=== PATIENT | male | born 1945 | race Caucasian/White ===

== ENCOUNTER 2022-12-04 07:59 | Emergency (ER) | payer MEDICARE, OTHER, BC, SELFPAY ==
[2022-12-04] VITALS (53 sets, daily range): BP systolic 109–210; BP diastolic 42–192; PULSE 43–90; RESP 7–53; TEMP 36.6; O2SAT 85–98
--- NOTE | 2022-12-04 08:00 | RT.EKG_ITS ---
APPROVED REPORT Exam: Resting ECG Reason for Exam: sob Patient Location: E HR:82 bpm ECG Measurements Heart Rate 82 AXIS NJ 256 P 58 QRSd 166 QRS -53 QT 455 T 94 QTc 530 Conclusion Sinus rhythm...normal P axis, V-rate 60- 99 Prolonged NJ interval...NJ >220, V-rate 50- 90 RBBB and LAFB...QRSd >120mS, axis(-40,240) LVH with secondary repolarization abnormality...multi-LVH criteria, abnrm ST-T Normal sinus rhythm at a rate of 82 with first-degree AV block and a NJ interval of 256 ms. Right bu ndle branch block with left axis deviation?bifascicular block. LVH based on voltage criteria in aVL. No acute ST segment abnormalities. No prior for comparison.
--- NOTE | 2022-12-04 08:32 | ED.GENADUL_ITS ---
Discharge Plan Disposition Patient Disposition: Home Condition: Improving Discharge Details Clinical Impression: Bilateral lower extremity edema, Drug-induced long QT syndrome, Pulmonary edema, Anemia Primary Care Provider: Catherine,Local ED Provider: Terri Rodríguez Home Meds and New Rx's Prescriptions: Continued latanoprost 0.005 % Drops 1 drp ophthalmic (eye) QHS levothyroxine 175 mcg tablet 175 mcg PO DAILY potassium chloride 10 mEq Capsule, Extended Release 20 meq PO DAILY lisinopril 20 mg Tablet 20 mg PO BID glipizide 10 mg Tablet 10 mg PO BID allopurinol 100 mg Tablet 100 mg PO DAILY aspirin 81 mg Tablet,Delayed Release (Dr/Ec) 81 mg PO DAILY isosorbide mononitrate 60 mg tablet extended release 24 hr 60 mg PO DAILY Patient Comments: TAKE 1 TABLET BY MOUTH EVERY DAY amlodipine 10 mg Tablet 10 mg PO DAILY metformin 1,000 mg Tablet 1,000 mg PO BID hydralazine 50 mg Tablet 50 mg PO TID metoprolol succinate 25 mg tablet extended release 24 hr 25 mg PO DAILY Patient Comments: TAKE 1 TABLET BY MOUTH EVERY DAY multivitamin,[id number]-[id number]-FA-min Tablet 1 tab PO DAILY cholecalciferol (vitamin D3) 25 mcg (1,000 unit) Tablet 25 mcg PO DAILY alogliptin 25 mg Tablet 25 mg PO DAILY atorvastatin 40 mg Tablet 40 mg PO QHS Changed furosemide 40 mg tablet 80 mg PO DAILY Qty: 0 0RF Patient Comments: TAKE 1 TABLET BY MOUTH EVERY DAY ranolazine 1,000 mg tablet extended release 12 hr 500 mg PO BID Qty: 0 0RF Patient Comments: TAKE 1 TABLET BY MOUTH EVERY 12 HOURS Discharge Instructions Instructions: Heart Failure (ED), Low-Sodium Diet (ED) Additional Instructions: Your shortness of breath is associated with fluid overload. Please try to pay close attention to how much sodium you are getting in your diet. I have attached a informational sheet regarding a low-sodium diet. This particularly found in processed foods. To help with your self of this extra fluid, please increase your Lasix from 40 mg to 80 mg for the next 2 days. You did get an IV dose today so do not need any further today. Reviewed medication changes, I would like for you to change your Lasix as above and cut back on your granola zine as this is causing you to have some EKG changes. I would like for you to cut this back to 500 mg twice a day as was your previous dosing. With these medication changes, you will need to have your labs checked this week, please call your cardiology team for primary care to discuss these needs. Please continue to elevate your legs and apply compressive if you develop chest pain, increase shortness of breath, fever/chills or other new/worsening symptom please seek care urgently once again. Otherwise, please follow-up with your cardiology team or primary care by the end of the week.Dressings to your lower extremities. Discharge Data Discharge Date/Time-TO BE ENTERED AT DEPARTURE: 12/04/22 13:58 Medical Decision Making Patient is a pleasant 77-year-old male, accompanied by [id number], with chief complaint of shortness of breath. Past medical history pertinent for reported diastolic dysfunction, recent MALGORZATA, bilateral lower extremity lymphedema, oxygen dependent, ACS with stent placement, LORA. He reports that he began short of breath yesterday but states that this is only with exertion. He denies any chest pain. No pain with respirations or lower abdominal pain. States that he does have chronic lower extremity swelling and this has increased recently. He is chronically on 40 mg of p.o. Lasix and states that he has had 3 short bursts of this being increased to 80 mg daily over the past month. Patient was also recently discharged from hospital in [place] where he was being treated for reported diastolic dysfunction, fluid overload, pulmonary edema, GI bleed. Patient was chronically on Plavix associated with previous stent placement but this is since been stopped due to his GI bleed. As reported by patient and family that no direct source of bleeding was found although I do believe that it was in the small bowel. They report that he received 4 units of PRBCs as well as iron transfusions and was discharged home with a hemoglobin over 8 and that it had remained there at his postdischarge appointment. He has not noted any change in his bowel habits recently. Reports he has been having 1 bowel movement per day and is chronically on MiraLAX. No known respiratory issues aside from recent pulmonary edema. Remote history of smoking. [id number]-[id number] concerned for reduced capacity due to obesity but has not been formally diagnosed and I am aware of. Patient chronically has a sleeping upright position but this is not changed recently. Patient old here from [place] 2 days ago. Has not been using his CPAP since as his travel and is not able to except that his oxygen demand. On exam, patient appears chronically ill. While he denies being short of breath at the moment, he is noted to take frequent short breaths which may be associated with his position and body habitus. He does have crackles heard bilaterally as well as significant lower extremity edema for which she has compression hose on. He has no posterior calf tenderness with palpation. His abdomen is nontender. Normal cardiac exam. He does not appear frankly anemic at this time with pink conjunctiva and mucous membranes. His exam is more consistent with a heart failure exacerbation. However, given his recent history of anemia, unknown source of GI bleed and other comorbidities I do feel that prior to treating this, we will begin with diagnostics. He does report mild dry cough but he has not had any other upper respiratory symptoms or fever/chills to suggest pneumonia. He also reports that when he went in for his anemia to the emergency department initially, he was having some shortness of breath similar to this so certainly on the differential. Also considered potential ACS given past medical history. Also considered potential PE given him stopping his Plavix recently, travel and hospitalization. ECG was obtained and reviewed by Dr. Diallo. 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 No ST elevation. HEART: Enlarged.? Aorta: Not dilated.? Calcification. PULMONARY VASCULATURE: Mildly prominent.? LUNGS: Increased interstitial markings lower lobes. ? PLEURAL SPACE: Small bilateral pleural effusions.? No pneumothorax.? BONE:Unremarkable for age.? IMPRESSION: Findings consistent with cardiomegaly and mild CHF VBG reviewed. pH is normal but the bicarb is elevated. This may be associated with his not using his CPAP recently. His CBC was reviewed. While he still remains anemic, his hemoglobin is uptrending compared to recent reports hemoglobin of 9.2, up from the 8.4. I reviewed the chest x-ray myself. Exam and x-ray support fluid overload and we will give IV Lasix. The patient reports that he is feeling improved after the IV Lasix. Will road test the patient. Repeat troponin remains within normal limits. D-dimer is within age-adjusted normal. No significant electrolyte abnormalities. Will obtain a repeat ECG concerning for prior mention abnormalities plus a prolonged QTc C. It was initially 530 and is now up to 578. On his medication list, I see when the Lizanne is a QT prolonging agent. This is not recently been changed for the patient. We will consult with cardiology regarding this change. Patient also has a few droplets noted increase in the concern. He denies any chest pain, Cardiology at advised that a range of QT 30-50ms is expected. Advised to hold on the ranolazine. Does not necessarily need to be admitted. Advised to get old ECG for comparison. We had called his previous hospital at the time of arrival to request this but have not yet received. Will attempt to reach cardiology directly, Dr. Harris, [facility]. Dr. Harris is not in but will speak with his nursing team and have them fax over previous ECG. QTC was just under 500 on that previous ECG. johan BBB was present on previous. They are able to see him in f/u. they also advise that patient had doubled the ranolazine, we discussed that he has been advised to go back to prior dosing of 500mg BID. Patient contineus to feel improved and is requesting d/c to home. We also disc ussed dietary triggers for his HF as his recent travel not only lead him to not use his CPAP, but also have increased sodium intake. We discussed where this is most commonly found. Encouraged elevation of LE, encouraged that he continue with his compression hose. Encouraged mobilization. Advised that he continue with the increased Lasix for the next 3 days. Advised he will need repeat labs later this week. He will call PCP as he is going back to [facility] or tomorrow. Strict return precautions given. All of his quesitons and concerns were addressed, they are in agreement with this plan. HPI General Date/Time Provider Initiated Documentation: 12/04/22 08:00 . Limitations to Documentation: no limitations . Information obtained by: patient, family (daughter in law) and RN notes reviewed . History of Present Illness 77 year old M presents to the emergency department with the chief complaint of SOB with exertion, described as moderate and similar to prior episodes, Quality is described as other (denies any pain), and is localized to the chest. Patient reports no radiation. Patient started experiencing this day(s) (1) and it has been intermittent and now resolved (wih rest). Immobilization improves symptom(s), Movement worsens symptoms . Patient notes cough and shortness of breath; denies chest pain, diaphoresis, fever/chills, loss of appetite, nausea/vomiting, rash and syncope. Patient did receive the following treatments prior to arrival, none (on home O2 chronically) Related Data Home Medications Medication Instructions Recorded Confirmed allopurinol 100 mg tablet 100 mg PO DAILY 12/04/22 12/04/22 alogliptin 25 mg tablet 25 mg PO DAILY 12/04/22 12/04/22 amlodipine 10 mg tablet 10 mg PO DAILY 12/04/22 12/04/22 aspirin 81 mg tablet,delayed 81 mg PO DAILY 12/04/22 12/04/22 release atorvastatin 40 mg tablet 40 mg PO QHS 12/04/22 12/04/22 cholecalciferol (vitamin D3) 25 25 mcg PO DAILY 12/04/22 12/04/22 mcg (1,000 unit) tablet furosemide 40 mg tablet 80 mg PO DAILY #0 tabs 12/04/22 12/04/22 glipizide 10 mg tablet 10 mg PO BID 12/04/22 12/04/22 hydralazine 50 mg tablet 50 mg PO TID 12/04/22 12/04/22 isosorbide mononitrate 60 mg 60 mg PO DAILY 12/04/22 12/04/22 tablet,extended release 24 hr latanoprost 0.005 % eye drops 1 drp ophthalmic (eye) QHS 12/04/22 12/04/22 levothyroxine 175 mcg tablet 175 mcg PO DAILY 12/04/22 12/04/22 lisinopril 20 mg tablet 20 mg PO BID 12/04/22 12/04/22 metformin 1,000 mg tablet 1,000 mg PO BID 12/04/22 12/04/22 metoprolol succinate 25 mg 25 mg PO DAILY 12/04/22 12/04/22 tablet,extended release 24 hr multivitamin,vy-xxbl-Ny-FA-min 1 tab PO DAILY 12/04/22 12/04/22 potassium chloride 10 mEq 20 meq PO DAILY 12/04/22 12/04/22 capsule,extended release ranolazine 1,000 mg 500 mg PO BID #0 tabs 12/04/22 12/04/22 tablet,extended release,12 hr Previous Rx's Medication Instructions Recorded furosemide 40 mg tablet 80 mg PO DAILY #0 tabs 12/04/22 ranolazine 1,000 mg 500 mg PO BID #0 tabs 12/04/22 tablet,extended release,12 hr Allergies Allergy/AdvReac Type Severity Reaction Status Date / Time iodine Allergy Severe Hives Unverified 12/04/22 08:10 General Stated Complaint: SOB RACHEL: 2 Review of Systems Constitutional Constitutional: Reports as per HPI, Denies chills and Denies fever(s) Cardiovascular Cardiovascular: Reports as per HPI Respiratory Respiratory: Reports as per HPI, Denies chest congestion, Denies pain on inspiration and Denies pain with cough Gastrointestinal Gastrointestinal: Reports as per HPI, Denies abdominal pain, Denies diarrhea and Denies nausea Musculoskeletal Musculoskeletal: Reports as per HPI and Denies back pain Integumentary/Breasts Skin/Breast: Reports as per HPI and Denies rash PFSH All Active Problems (Updated 12/04/22 @ 13:42 by CLAUDIA Arce) Bilateral lower extremity edema (Acute) Drug-induced long QT syndrome (Acute) Pulmonary edema (Acute) Anemia (Chronic) Social History Smoking/Tobacco Use Status: Former Tobacco Use Smoking risk assessment performed?: Yes Alcohol Intake: never Drug use: Never Substance use type: does not use Do you feel safe at home: Yes Do you feel safe in your relationship?: Yes Exam Const General: cooperative, comfortable, no acute distress, well developed and ill appearing chronically Nutritional Appearance: well nourished and obese Orientation: alert, awake and oriented x3 HENMT Head: normal to inspection Ears: hearing grossly normal bilaterally Mouth: moist mucous membranes Eyes General: appearance normal, both eyes and all related structures Chest Chest: normal inspection of the chest, normal palpation of entire chest wall and no crepitus Resp Effort & Inspection: able to speak in complete sentences, no respiratory distress and tachypneic Auscultation: crackles bilaterally at the base, no rales, no rhonchi and no wheezes Cardio Rate: regular rate Rhythm: regular rhythm Heart Sounds: S1 normal and S2 normal GI Inspection: normal to inspection and obesity Palpation: soft, no hepatosplenomegaly, not firm, no guarding, not rigid and nontender Skin General skin exam: no rashes or lesions noted Trauma: no lacerations or abrasions Neuro General: patient alert, patient awake and patient oriented x3 Cognition: normal cognition Speech: speech normal Gait: normal gait Extrem General: no calf tenderness, normal gait and edema (large amount of edema, no calf pain, bilateral compression hose in place) Course Vital Signs Vital signs: Vital Signs Temperature 36.6 C 12/04/22 08:01 Pulse 88 12/04/22 08:01 Respiratory Rate 20 12/04/22 08:01 Pulse Oximetry 90 L 12/04/22 08:01 Temperature 36.6 C 12/04/22 08:01 Temperature Source Oral 12/04/22 08:01 Pulse 88 12/04/22 08:01 Respiratory Rate 20 12/04/22 08:01 Blood Pressure Position Sitting 12/04/22 08:01 Pulse Oximetry 90 L 12/04/22 08:01 Oxygen Delivery Method Nasal Cannula 12/04/22 08:01 Oxygen Flow Rate 2 12/04/22 08:01
[2022-12-04 08:58] LABS: BE (Venous) 6 mmol/L (-2-3); HCO3 (Venous) 31 mmol/L (23-28); O2 Sat (Venous) 89 %; TCO2 (Venous) 29 mmol/L (24-29); pCO2 (Venous) 50 mmHg (41-51); pO2 (Venous) 56 mmHg
[2022-12-04 08:59] LABS: Abs Immature Grans 0.03 10^3/uL (0.0-0.06); Absolute Basophil Count 0.03 10^3/uL (0.0-0.2); Absolute Eosinophil Count 0.14 10^3/uL (0.0-0.7); Absolute Lymphocyte Count 0.44 10^3/uL (1.2-3.4); Absolute Monocyte Count 0.52 10^3/uL (0.1-0.8); Absolute Neutrophil Count 7.08 10^3/uL (1.2-6.7); Basophils % 0.4; Eosinophils % 1.7; HCT 29.6 % (40.0-50.0); HGB 9.2 g/dL (13.5-17.5); Immature Grans % 0.4; Lymphocytes % 5.3; MCHC 31.1 % (32.0-36.0); MCV 90 fL (80-95); MPV 9.5 fL (8.0-11.0); Monocytes % 6.3; Neutrophils % 85.9; Platelet Count 253 10^3/uL (130-400); RBC 3.28 10^6/uL (4.36-5.78); RDW 23.9 % (11.8-14.1); RDW-SD 78.5 fL; WBC 8.24 10^3/uL (4.4-10.8)
[2022-12-04 09:20] LABS: Anisocytosis 3+; Macrocytosis 1+; Microcytosis 2+; Poikilocytes 2+; Polychromasia Present
[2022-12-04 09:21] LABS: INR 1.1 (0.9-1.1); PTT Activated 27.5 sec (21.5-31.9); Prothrombin Time 10.7 sec (9.3-11.0)
--- NOTE | 2022-12-04 09:31 | DI.RAD_ITS ---
Exam(s) XR CHEST 2V PA LATERAL EXAM: XR CHEST 2V PA LATERAL CLINICAL HISTORY: SOB with exertion, recent admission for HF TECHNIQUE: 2D digital imaging was performed. COMPARISON: No exams were available for comparison FINDINGS: HEART: Enlarged. Aorta: Not dilated. Calcification. PULMONARY VASCULATURE: Mildly prominent. LUNGS: Increased interstitial markings lower lobes. PLEURAL SPACE: Small bilateral pleural effusions. No pneumothorax. BONE:Unremarkable for age. IMPRESSION: Findings consistent with cardiomegaly and mild CHF. DATA REPOSITORY: RADIATION DOSE DELIVERED:
[2022-12-04 09:41] LABS: ALT 23 U/L (16-63); AST 23 U/L (15-37); Albumin 3.6 g/dL (3.4-5.0); Alkaline Phosphatase 109 U/L (46-116); Anion Gap 9.1 mmol/L (3-11); BUN 19 mg/dL (7-18); Bilirubin, Total 0.5 mg/dL (0.2-1.0); CO2 29.9 mmol/L (21.0-32.0); CREATININE 1.1 mg/dL (0.70-1.30); Calcium 8.9 mg/dL (8.5-10.1); Chloride 102 mmol/L (98-107); Estimated GFR 69.14 (mL/min/1.73m2); Glucose 212 mg/dL (74-106); Magnesium 2.1 mg/dL (1.8-2.4); NT-proBNP 151 pg/mL (<300); Potassium 3.7 mmol/L (3.5-5.1); Sodium 141 mmol/L (136-145); Total Protein 7.5 g/dL (6.4-8.2); Troponin I < 50 ng/L (<or=60)
[2022-12-04] MEDS: Furosemide 40 MG/4 ML VIAL IVP (09:45)
[2022-12-04 10:21] LABS: D-Dimer 664 ng/mlFEU (<500)
--- NOTE | 2022-12-04 11:00 | RT.EKG_ITS ---
APPROVED REPORT Exam: Resting ECG Reason for Exam: ? rhythm change Patient Location: E HR:67 bpm ECG Measurements Heart Rate 67 AXIS NC 237 P 0 QRSd 157 QRS -55 QT 513 T 78 QTc 578 Conclusion Sinus rhythm...normal P axis, V-rate 60- 99 Sinus pause...long R-R interval, normal QRSd Prolonged NC interval...NC >220, V-rate 50- 90 RBBB and LAFB...QRSd >120mS, axis(-40,240) Prolonged QT interval...QTc >500mS Sinus rhythm at a rate of 67 with sinus pauses. Appears similar to prior dated earlier today with bi fascicular block. QTc has lengthened compared to prior.
[2022-12-04 12:12] LABS: Troponin I < 50 ng/L (<or=60)
== END 2022-12-04 13:58 | disposition home or self-care (01) ==
PROVIDERS: Emergency Provider Physician Assistant
DX: J81.1 Chronic pulmonary edema (principal); I45.81 Long QT syndrome; D64.9 Anemia, unspecified; R06.02 Shortness of breath; I45.19 Other right bundle-branch block; I44.4 Left anterior fascicular block; Z79.899 Other long term (current) drug therapy
CPT/HCPCS: 36415; 80053; 82805; 93005; 96374; 99284; 71046; 83735; 83880; 84484; 85025; 85379; 85610; 85730; 93010; J1940